=== PATIENT | male | born 2000 | race Caucasian/White ===

== ENCOUNTER 2019-03-16 17:12 | Emergency (ER) | payer MEDICAID ==
[2019-03-16] MEDS ORDERED: Tetracaine HCl/PF 0.5% 4 ML Bottle EYEBOTH ONE (17:13)
[2019-03-16] MEDS ORDERED: Fluorescein 1 MG Ophth Strip EYEBOTH ONE (17:13)
[2019-03-16] MEDS ORDERED: Diphtheria,Pertussis(Acell),Tetanus Vaccine 0.5 ML Syringe IM ONE (17:43)
--- NOTE | 2019-03-16 17:44 | EDM.PDOC ---
ED HPI GENERAL MEDICAL PROBLEM - General Chief Complaint: ENT Problem Stated Complaint: wood chip to right eye Time Seen by Provider: 03/16/19 17:32 Source of Information: Reports: Family History Limitations: Reports: Language Barrier - History of Present Illness INITIAL COMMENTS - FREE TEXT/NARRATIVE: Patient presents to ER with concerns of a foreign body in the right eye. Father states they were moving wood boards and he complained of pain in his right eye and they wondering if he possibly got a wood chip in there. He did start rubbing it right away. Patient is developmentally disabled so is unable to relay what happened. Right was red. No other ROS obtainable. Last tetanus likely in 7th grader per father. Onset: Today, Sudden Duration: Minutes: Location: Reports: Face Associated Symptoms: Reports: No Other Symptoms - Related Data Allergies Allergy/AdvReac Type Severity Reaction Status Date / Time No Known Allergies Allergy Verified 03/16/19 17:13 Home Meds: Home Meds Levothyroxine [Synthroid] 100 mcg PO ACBREAKFAST 03/16/19 [History] Past Medical History - Past Health History Medical/Surgical History: Denies Medical/Surgical History Social & Family History - Tobacco Use Smoking Status *Q: Unknown Ever Smoked ED ROS GENERAL - Review of Systems Review Of Systems: Unable To Obtain ED EXAM GENERAL W FULL EYE - Physical Exam Exam: See Below Exam Limited By: Language Barrier General Appearance: Alert, WD/WN, No Apparent Distress Eye Exam: Bilateral Eye: EOMI (patient moves his eyes and follows command but unable to hold them open for better investigation with nurse assist.), PERRL Eyelids: Bilateral: Normal Appearance Conjunctiva & Sclera: Right: Injected Pupils: Normal Accommodation Pupillary Reaction: Bilateral: Brisk Posterior Chamber: Right: Unable to Examine ED EYE w/ Add Procedure - Eye Procedure Alcaine Drops Administered: Yes Progress: Very difficult to adequately examine eye. Do not appreciate any foreign objects. Tetracaine instilled. Flourescein stain applied. Does have small corneal abrasion to the 2 o'clock region. Course - Vital Signs Last Recorded V/S: Last Vital Signs Temp 98 F 03/16/19 17:26 Pulse 77 03/16/19 17:26 Resp 16 03/16/19 17:26 BP 129/69 03/16/19 17:26 Pulse Ox 99 03/16/19 17:26 - Orders/Labs/Meds Orders: Active Orders 24 hr Category Date Time Status Vaccines to be Administered [RC] PER UNIT ROUTINE Care 03/16/19 17:43 Ordered Ciprofloxacin [Ciloxan 0.3% Ophth Soln] Med 03/16/19 17:45 Ordered See Dose Instructions EYERT Q4HR Medication Orders Ciprofloxacin (Ciloxan 0.3% Ophth Soln) 0 ml EYERT TID KARIN Meds: Medications Generic Name Dose Route Start Last Admin Trade Name Freq PRN Reason Stop Dose Admin Ciprofloxacin 0 ml 03/16/19 17:45 Ciloxan 0.3% Ophth Soln EYERT TID KARIN Discontinued Medications Generic Name Dose Route Start Last Admin Trade Name Freq PRN Reason Stop Dose Admin Diphtheria/Tetanus/Acell Pertussis 0.5 ml 03/16/19 17:43 Adacel IM 03/16/19 17:44 .ONCE ONE Departure - Departure Time of Disposition: 17:42 Disposition: Home, Self-Care 01 Condition: Good Clinical Impression: Corneal abrasion - Discharge Information *PRESCRIPTION DRUG MONITORING PROGRAM REVIEWED*: No *COPY OF PRESCRIPTION DRUG MONITORING REPORT IN PATIENT TAMIA: No Referrals: PCP,None [Primary Care Provider] - Forms: ED Department Discharge Additional Instructions: 1. Ciloxan 0.3%- 3 drops three times a day for 7 days 2. If complains of increased pain, note increased drainage or concern, follow up in clinic 3. Call with any questions - My Orders Last 24 Hours: My Active Orders 03/16/19 17:43 Vaccines to be Administered [RC] PER UNIT ROUTINE 03/16/19 17:45 Ciprofloxacin [Ciloxan 0.3% Ophth Soln] See Dose Instructions EYERT Q4HR - Assessment/Plan Last 24 Hours: My Active Orders 03/16/19 17:43 Vaccines to be Administered [RC] PER UNIT ROUTINE 03/16/19 17:45 Ciprofloxacin [Ciloxan 0.3% Ophth Soln] See Dose Instructions EYERT Q4HR
[2019-03-16] MEDS ORDERED: Ciprofloxacin 0.3% Ophth Soln 2.5 ML Bottle EYERT SCH (17:45)
[2019-03-16] MEDS ORDERED: Ciprofloxacin 0.3% Ophth Soln 5 ML Bottle ONE (18:02)
== END 2019-03-16 18:08 | disposition home or self-care (01) ==
LOC: CC.ED 17:12
DX: S05.01XA Injury of conjunctiva and corneal abrasion without foreign body, right eye, initial encounter (principal); Z23 Encounter for immunization; X58.XXXA Exposure to other specified factors, initial encounter
CPT/HCPCS: 90471; 90715; 99282

== ENCOUNTER 2020-05-14 16:17 | Emergency (ER) | payer MEDICAID ==
[2020-05-14] MEDS ORDERED: fentaNYL 100 MCG/2 ML SDV IVPUSH PRN (17:07)
[2020-05-14] MEDS ORDERED: Sodium Chloride 0.9% 1,000 ML IV SCH (17:15)
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
== END 2020-05-14 18:27 | disposition critical access hospital (66) ==
LOC: CC.ED 16:17
DX: S43.005A Unspecified dislocation of left shoulder joint, initial encounter (principal); V89.2XXA Person injured in unspecified motor-vehicle accident, traffic, initial encounter
CPT/HCPCS: 73020-LT; 73030-LT; 73060-LT; 99284; J3010; J7030